=== PATIENT | female | born 2000 | race American Indian/Alaskan Native ===

== ENCOUNTER 2020-12-25 16:50 | Emergency (ER) | payer SELFPAY ==
[2020-12-25 17:56] VITALS: BP 124/79
--- NOTE | 2020-12-25 18:31 | Emergency Department Report ---
ED General Adult HPI - General Chief complaint: Extremity Injury, Upper Stated complaint: RT HAND INJURY Time Seen by Provider: 12/25/20 17:34 Source: patient Mode of arrival: Ambulatory Limitations: No Limitations - History of Present Illness Initial comments: 20-year-old -[place] female patient presents with complaints of right wrist pain x1 week. Patient states her pain began after she lifted a heavy item at work. She denies any decreased range of motion, numbness/tingling in her wrist or hand, or weakness. She rates her pain as 7/10 in severity and states it occurs with touch in movement of the wrist. She denies trying any OTC medications for pain. - Related Data Previous Rx's Medication Instructions Recorded Last Taken Type Naproxen [Naprosyn TAB] 500 mg PO BID #20 tablet 12/25/20 Unknown Rx ED Review of Systems ROS: Stated complaint: RT HAND INJURY Other details as noted in HPI Constitutional: denies: malaise Musculoskeletal: arthralgia. denies: joint swelling Skin: denies: change in color Neurological: denies: numbness, paresthesias ED Past Medical Hx - Past Medical History Previous Medical History?: No - Surgical History Past Surgical History?: No - Social History Smoking Status: Never Smoker Substance Use Type: Alcohol, Marijuana - Medications Home Medications: Home Medications Medication Instructions Recorded Confirmed Last Taken Type Naproxen [Naprosyn TAB] 500 mg PO BID #20 tablet 12/25/20 Unknown Rx ED Physical Exam - General Limitations: No Limitations General appearance: alert, in no apparent distress - Head Head exam: Present: atraumatic, normocephalic - Eye Eye exam: Present: normal appearance. Absent: scleral icterus - Neck Neck exam: Present: normal inspection - Respiratory Respiratory exam: Absent: respiratory distress - Cardiovascular Cardiovascular Exam: Present: regular rate - Extremities Exam Extremities exam: Present: other (Tenderness to palpation noted of middle portion of wrist without obvious bony deformity or skin changes noted; patient has normal range of motion and radial and ulnar pulses) - Neurological Exam Neurological exam: Present: alert, oriented X3, normal gait - Psychiatric Psychiatric exam: Present: normal affect, normal mood - Skin Skin exam: Present: warm, dry, intact, normal color. Absent: rash, diaphoretic, ecchymosis ED Course Vital Signs 12/25/20 17:55 Temperature 99.1 F Respiratory 16 Rate Blood Pressure 124/79 ED Medical Decision Making - Radiology Data Radiology results: report reviewed RIGHT WRIST 4 VIEWS 1855 INDICATION: Lifting injury COMPARISON: None available. FINDINGS: No fractures or dislocations are seen. - Medical Decision Making 20-year-old -[place] female patient presents with complaints of right wrist pain x1 week. Patient states her pain began after she lifted a heavy item at work. She denies any decreased range of motion, numbness/tingling in her wrist or hand, or weakness. She rates her pain as 7/10 in severity and states it occurs with touch in movement of the wrist. She denies trying any OTC medications for pain. Pulse ox noted to be 100% on room air; heart rate 86 bpm X-rays negative for any acute bony abnormality. Will treat for wrist sprain with wrist splint and NSAIDs. Recommend follow-up with orthopedics as needed. Strict return precautions were discussed in detail with patient who verbalizes understanding. Critical care attestation.: If time is entered above; I have spent that time in minutes in the direct care of this critically ill patient, excluding procedure time. ED Disposition Clinical Impression: Right wrist sprain Qualifiers: Encounter type: initial encounter Qualified Code(s): S63.501A - Unspecified sprain of right wrist, initial encounter Disposition: - TO HOME OR SELFCARE Is pt being admited?: No Condition: Stable Instructions: Wrist Sprain, Adult Prescriptions: Naproxen [Naprosyn TAB] 500 mg PO BID #20 tablet Referrals: [facility] [Provider Group] - 3-5 Days Forms: Work/School Release Form(ED)
--- NOTE | 2020-12-25 19:09 | XRay Report ---
RIGHT WRIST 4 VIEWS 1855 INDICATION: Lifting injury COMPARISON: None available. FINDINGS: No fractures or dislocations are seen. Signer Name: Zelalem Robbins MD Signed: 12/25/2020 7:05 PM Workstation Name: [id number]
== END 2020-12-25 20:21 | disposition home or self-care (01) ==
LOC: ED 16:50
DX: S63.501A Unspecified sprain of right wrist, initial encounter (principal); F12.90 Cannabis use, unspecified, uncomplicated; Z79.899 Other long term (current) drug therapy; X50.0XXA Overexertion from strenuous movement or load, initial encounter; Y93.89 Activity, other specified; Y92.89 Other specified places as the place of occurrence of the external cause; Y99.0 Civilian activity done for income or pay